=== PATIENT | male | born 1935 | race African-American/Black ===

== ENCOUNTER 2017-12-12 14:39 | Observation (INO) | payer OTHER, MEDICARE, MEDICAID ==
[~2017-12-12] VITALS: Ht 182.9 cm; Wt 75.7 kg
[~2017-12-12 14:39] MED LIST: ASPI-986 PO; ATOR10TA PO; CHOL100046 PO; LISI2.5T47 PO
[2017-12-12] MEDS ORDERED: SODIUM CHLORIDE 0.9% 1,000 ML IV ONE (15:36)
[2017-12-12] MEDS ORDERED: HALOPERIDOL LACTATE 5MG/ML VIAL IM ONE (15:45)
[2017-12-12 16:27] LABS: BASOPHILS % 1.4 % (0.0-2.0); EOSINOPHILS % 1.9 % (0.0-5.0); HEMATOCRIT. 39.4 % (42.0-52.0); LYMPHOCYTES % 23.9 % (20.0-50.0); MEAN CORPUSCULAR VOLUME 84.8 fL (80.0-94.0); MEAN PLATELET VOLUME 10.4 fl (7.4-10.4); NEUTROPHILS % 63.8 % (40.0-76.0); PLATELET 140 x1000/uL (130-400); RED BLOOD CELL COUNT 4.65 mill/uL (4.7-6.1); RED CELL DISTRIBUTION WIDTH 13.4 % (11.6-14.6)
[2017-12-12 16:29] LABS: CHLORIDE 101 mEq/L (98-107)
[2017-12-12 16:33] LABS: ETHANOL BLOOD < 10 mg/dL
[2017-12-12 16:37] LABS: CREATINE KINASE 112 IU/L (39-308)
[2017-12-12 16:39] LABS: AMMONIA 37 uMol/L (<32)
[2017-12-12 16:40] LABS: BG BASE EXCESS -1.1 mmol/L (-2.0-2.0); BG DEOXYHEMOGLOBIN 3.2 % (0.0-5.0); BG FRACTION INSPIRED OXYGEN 21; BG HCO3 ACT 22.7 mmol/L (22.0-26.0); BG METHEMOGLOBIN 0.1 % (0.0-1.5); BG OXYGEN SATURATION 96.8 % (92.0-98.5); BG OXYHEMOGLOBIN 95.7 % (94.0-97.0); BG PCO2 35.2 mmHg (35.0-45.0); BG PH 7.428 (7.350-7.450); BG PO2 84.7 mmHg (75.0-100.0); BG SAMPLE SITE RIGHT RADIAL; BG TOTAL HEMOGLOBIN 13.4 g/dL (12.0-18.0); BG VENT MODE ROOM AIR
[2017-12-12] MEDS ORDERED: LORAZEPAM 2MG/ML CPJ ONE (18:03)
[2017-12-12] MEDS ORDERED: LORAZEPAM 2MG/ML CPJ IV ONE (19:30)
[2017-12-12 21:05] VITALS: BP 102/52
[2017-12-12 21:10] VITALS: BP 102/52
[2017-12-12 21:48] LABS: CLARITY URINE CLEAR (CLEAR); COLOR URINE DARK YELLOW (YELLOW); KETONES URINE TRACE (NEGATIVE); LEUKOCYTE ESTERASE URINE NEGATIVE (NEGATIVE); NITRITE URINE NEGATIVE (NEGATIVE); OCCULT BLOOD URINE NEGATIVE (NEGATIVE); PH URINE 6.5 (4.5-8.0); PROTEIN URINE 1+ (NEGATIVE); SPECIFIC GRAVITY URINE 1.021 (1.005-1.030)
[2017-12-12 21:57] LABS: *AMPHETAMINES SCREEN URINE NEGATIVE (NEGATIVE); *BARBITURATES SCREEN URINE NEGATIVE (NEGATIVE); *BENZODIAZEPINES SCREEN URINE NEGATIVE (NEGATIVE); *COCAINE SCREEN URINE NEGATIVE (NEGATIVE); METHADONE URINE SCREEN NEGATIVE (NEGATIVE); OPIATES URINE SCREEN NEGATIVE (NEGATIVE)
[2017-12-12 21:58] LABS: CANNABINOID URINE SCREEN NEGATIVE (NEGATIVE); PHENCYCLIDINE URINE SCREEN NEGATIVE (NEGATIVE)
[2017-12-13] VITALS: BP 138/79
[2017-12-13] MEDS ORDERED: CLONIDINE 0.1MG TABLET PO PRN
[2017-12-13] MEDS ORDERED: LORAZEPAM 2MG/ML CPJ IM PRN
[2017-12-13] MEDS ORDERED: ONDANSETRON HCL 4MG/2ML VIAL IV PRN
[2017-12-13] MEDS: LEVETIRACETAM 500 MG in SODIUM CHLORIDE 0.9% 100 ML IV SCH ×2 (02:02→14:57)
[2017-12-13] MEDS: DEXT 5%/0.45% NACL 1000ML 1,000 ML IV SCH ×2 (02:03→13:11)
[2017-12-13 04:42] VITALS: BP 123/75
[2017-12-13 07:19] LABS: BASOPHILS % 0.8 % (0.0-2.0); EOSINOPHILS % 1.3 % (0.0-5.0); HEMATOCRIT. 38.4 % (42.0-52.0); HEMOGLOBIN. 12.6 g/dL (14.0-18.0); LYMPHOCYTES % 18.6 % (20.0-50.0); MEAN CORPUSCULAR HEMOGLOBIN 27.8 pg (28.0-32.0); MEAN CORPUSCULAR VOLUME 84.8 fL (80.0-94.0); MEAN PLATELET VOLUME 10.3 fl (7.4-10.4); NEUTROPHILS % 68.3 % (40.0-76.0); PLATELET 141 x1000/uL (130-400); RED BLOOD CELL COUNT 4.53 mill/uL (4.7-6.1); RED CELL DISTRIBUTION WIDTH 13.4 % (11.6-14.6)
[2017-12-13 07:34] LABS: CHLORIDE 106 mEq/L (98-107)
[2017-12-13 07:44] LABS: LDL CHOLESTEROL 78 mg/dL (5-100)
[2017-12-13 07:45] LABS: HDL CHOLESTEROL 54 mg/dL (40-59)
[2017-12-13 08:00] VITALS: BP 123/68
[2017-12-13] MEDS ORDERED: THIAMINE HCL 100MG TABLET PO SCH (09:00)
[2017-12-13] MEDS ORDERED: ASPIRIN 81MG EC TABLET PO SCH (09:00)
[2017-12-13] MEDS ORDERED: ENOXAPARIN 40MG/0.4ML SYR SUBCUT SCH (09:00)
[2017-12-13] MEDS ORDERED: PANTOPRAZOLE SODIUM 40 MG/VIAL IV SCH (09:00)
[2017-12-13 12:00] VITALS: BP 115/72
[2017-12-13 15:41] VITALS: BP 120/70
[2017-12-13 16:00] VITALS: BP 125/75
== END 2017-12-13 18:11 | disposition home or self-care (01) ==
LOC: ER 14:39 → INTOOBSV 19:32 → 7WST 19:32 → EDBEDREQ 19:35 → ENRESERV 20:00 → EDBEDREQTM 20:57
PROVIDERS: ADMIT Internal Medicine; ATTEND Internal Medicine
DX: R56.9 Unspecified convulsions (principal); F02.80 Dementia in other diseases classified elsewhere, unspecified severity, without behavioral disturbance, psychotic disturbance, mood disturbance, and anxiety; Z86.73 Personal history of transient ischemic attack (TIA), and cerebral infarction without residual deficits; Z79.899 Other long term (current) drug therapy
CPT/HCPCS: 36415; 36600; 70450; 70551; 71045; 80053; 80061; 80305; 81003; 82140; 82375; 82542; 82550; 82805; 83605; 84439; 84443; 84484; 85025; 93005; 96361; 96365; 96366; 96372; 96375; 99285; C9113; G0378; G0482; J1630; J1650; J1953; J2060; J7030; 96374; J3490; J7050

== ENCOUNTER 2018-01-26 04:18 | Inpatient (IN) | payer OTHER, MEDICARE, MEDICAID ==
[~2018-01-26] VITALS: Ht 152.4 cm; Wt 73.0 kg
[2018-01-26] MEDS ORDERED: LORAZEPAM 2MG/ML CPJ IV ONE (05:15)
[2018-01-26] MEDS ORDERED: LEVETIRACETAM 500MG PREMIX 100 ML IV ONE (05:15)
[2018-01-26] MEDS ORDERED: SODIUM CHLORIDE 0.9% 1,000 ML IV ONE (05:15)
[2018-01-26] MEDS ORDERED: ONDANSETRON HCL 4MG/2ML INJ IV STA (05:15)
[2018-01-26] MEDS ORDERED: SODIUM CHLORIDE 0.9% 1,000 ML IV SCH (05:50)
[2018-01-26 06:25] LABS: BASOPHILS % 0.9 % (0.0-2.0); EOSINOPHILS % 0.4 % (0.0-5.0); HEMATOCRIT. 38.7 % (42.0-52.0); HEMOGLOBIN. 12.6 g/dL (14.0-18.0); MEAN CORPUSCULAR VOLUME 86.1 fL (80.0-94.0); MEAN PLATELET VOLUME 9.2 fl (7.4-10.4); MONOCYTES % 6.4 % (2.0-8.0); NEUTROPHILS % 80.3 % (40.0-76.0); PLATELET 175 x1000/uL (130-400); RED CELL DISTRIBUTION WIDTH 13.4 % (11.6-14.6)
[2018-01-26 06:29] LABS: CHLORIDE 105 mEq/L (98-107)
[2018-01-26 06:41] LABS: PROTHROMBIN TIME 10.4 sec (9.1-11.1)
[2018-01-26 08:30] VITALS: BP 138/77
[2018-01-26] MEDS ORDERED: ACETAMINOPHEN 650MG SUPP PR PRN (10:30)
[2018-01-26] MEDS ORDERED: DIPHENHYDRAMINE 50MG/ML VIAL IV PRN (10:30)
[2018-01-26] MEDS ORDERED: ONDANSETRON HCL 4MG/2ML INJ IV PRN (10:30)
[2018-01-26] MEDS ORDERED: LORAZEPAM 2MG/ML CPJ IV PRN (10:30)
[2018-01-26] MEDS ORDERED: IPRATROPIUM/ALBUTEROL 0.5-3(2.5)MG/3ML NEB INH PRN (10:30)
[2018-01-26] MEDS ORDERED: DEXT 5%/0.45% NACL 1000ML 1,000 ML IV SCH (10:30)
[2018-01-26] MEDS ORDERED: PANTOPRAZOLE SODIUM 40 MG/VIAL IV SCH (11:00)
[2018-01-26] MEDS ORDERED: ENOXAPARIN 40MG/0.4ML SYR SUBCUT SCH (11:30)
[2018-01-26 12:00] VITALS: BP 138/74
[2018-01-26] MEDS ORDERED: PHEN100O2 PO (13:25)
[2018-01-26] MEDS ORDERED: LEVE500T78 PO (13:41)
[2018-01-26 15:18] LABS: CLARITY URINE CLEAR (CLEAR); COLOR URINE YELLOW (YELLOW); KETONES URINE NEGATIVE (NEGATIVE); LEUKOCYTE ESTERASE URINE NEGATIVE (NEGATIVE); NITRITE URINE NEGATIVE (NEGATIVE); OCCULT BLOOD URINE NEGATIVE (NEGATIVE); PH URINE 5.5 (4.5-8.0); PROTEIN URINE NEGATIVE (NEGATIVE); SPECIFIC GRAVITY URINE 1.011 (1.005-1.030)
[2018-01-26 15:28] LABS: *AMPHETAMINES SCREEN URINE NEGATIVE (NEGATIVE); *BARBITURATES SCREEN URINE NEGATIVE (NEGATIVE); *COCAINE SCREEN URINE NEGATIVE (NEGATIVE)
[2018-01-26 15:29] LABS: CANNABINOID URINE SCREEN NEGATIVE (NEGATIVE); METHADONE URINE SCREEN NEGATIVE (NEGATIVE); OPIATES URINE SCREEN NEGATIVE (NEGATIVE); PHENCYCLIDINE URINE SCREEN NEGATIVE (NEGATIVE)
[2018-01-26 15:31] LABS: *BENZODIAZEPINES SCREEN URINE PRESUMTIVE POSITIVE (NEGATIVE)
[2018-01-26 16:00] VITALS: BP 129/74
[2018-01-26 16:59] VITALS: BP 129/71
[2018-01-26] MEDS ORDERED: PHENYTOIN SODIUM EXTENDED 100MG CAPSULE PO NR (17:00)
[2018-01-26] MEDS ORDERED: LEVETIRACETAM 500 MG in SODIUM CHLORIDE 0.9% 100 ML IV SCH ×2 (17:00→18:00)
[2018-01-26 20:00] VITALS: BP 120/62
== END 2018-01-26 21:55 | disposition home or self-care (01) | DRG 53 ==
LOC: ER 04:18 → 7WST 05:51 → EDBEDREQTM 06:01 → EDBEDREQ 06:01 → ENRESERV 07:01
PROVIDERS: ADMIT Internal Medicine; ATTEND Internal Medicine
DX: G40.901 Epilepsy, unspecified, not intractable, with status epilepticus (principal); E87.2 Acidosis; D64.9 Anemia, unspecified; I10 Essential (primary) hypertension; Z79.899 Other long term (current) drug therapy
CPT/HCPCS: 36415; 70450; 71045; 80053; 80185; 80305; 81003; 82962; 83605; 84484; 85025; 85610; 87040; 87086; 93005; C9113; J1650; J1953; J2060; J2405; J3490; J7030; J7050